=== PATIENT | female | born 1950 | race Caucasian/White ===

== ENCOUNTER 2016-11-20 09:03 | Emergency (ER) | payer OTHER, BC ==
--- NOTE | 2016-11-20 09:24 | PDOC ---
Attending Attestation - Resident Resident Name: Cruz Solomon - ED Attending Attestation I have performed the following: I have examined & evaluated the patient, The case was reviewed & discussed with the resident, I agree w/resident's findings & plan, Exceptions are as noted - HPI HPI: 11/20/16 11:00 Diarrhea, no nausea or vomiting, intermittent mild crampy abdominal pain since Tuesday when she had a zoster vaccination. No blood or mucus. Taking by mouth fluids well. No significant lightheadedness or orthostatic symptoms - Physicial Exam PE: 11/20/16 11:01 Examination is benign. No sign of significant dehydration. No abdominal tenderness, distention, and bowel sounds are normal. - Medical Decision Making 11/20/16 11:02 This is unlikely due to the vaccine. No travel, known exposure to others with GI illness, no exposure to children, and no suspicious food ingestions. However , a viral origin is most likely. Feels much better with rehydration. Continue fluids and Imodium at home. If symptoms persist, recommended stool analysis including BACK WINDER. Patient fully ambulatory, in no significant pain or other distress upon discharge, with diarrhea apparently controlled at this time.
[2016-11-20 09:26] VITALS: BP 103/65; PULSE 88; TEMP 97.8; BMI 28.1
[2016-11-20] MEDS ORDERED: SODIUM CHLORIDE 1,000 ML IV STA (09:44)
[2016-11-20] MEDS ORDERED: LOPERAMIDE HCL 2 MG CAPSULE PO ONE (09:44)
[2016-11-20] MEDS ORDERED: LOPERAMIDE HCL 2 MG CAPSULE ONE (10:13)
[2016-11-20 10:18] LABS: BASOPHIL 0.4 % (0-2.0); EOSINOPHIL 0.7 % (0-4.5); MCH 32.9 pg (25.7-33.7); MEAN CELL VOLUME 91.4 fl (80-96); MEAN PLT VOLUME 8.2 fl (7.5-11.1); NEUTROPHILS 76.2 % (42.8-82.8); PLATELET COUNT 216 K/MM3 (134-434); RDW 12.1 % (11.6-15.6); WHITE BLOOD COUNT 7.5 K/mm3 (4.0-10.8)
[2016-11-20 10:27] LABS: ALK PHOS 95 U/L (32-92); ANION GAP 11 (8-16); BILIRUBIN,TOTAL 1.3 mg/dl (0.2-1.0); CALCIUM 9.2 mg/dl (8.4-10.2); CO2 20 mmol/L (22-28); CREATININE 0.7 mg/dl (0.6-1.3); GLUCOSE,RANDOM 133 mg/dl (74-106); SGOT/AST 27 U/L (10-42); SGPT/ALT 30 U/L (10-40); TOT PROT 6.6 g/dl (6.4-8.3)
--- NOTE | 2016-11-20 11:05 | PDOC ---
History of Present Illness - General Chief Complaint: Diarrhea Stated Complaint: DIARRHEA Time Seen by Provider: 11/20/16 09:32 History Source: Patient - History of Present Illness Travel History: No Initial Comments: 11/20/16 10:58 65F with pmh of HTN and HCL on Norvasc and Crestor presents with multiple and daily episodes of water diarrhea and cramping since Tuesday night. She notes that she received a shingles shot earlier that day. She took imodium at home (2 on tuesday 1 on and 2 yesterday) which didn't seem to help. Last episode was 2 hours ago. Patient feels week and dehydrated but doesn't look ill. Pleasant interaction. Patient denies similar episodes in the past, visible rashes or feeling feverish. No visible blood or mucus in stools. No sick contacts, no ingestion of suspicious foods, no history of abdominal surgery. PCP: Dr. Hazel Campos. Past History - Past Medical History Allergies/Adverse Reactions: Allergies Allergy/AdvReac Type Severity Reaction Status Date / Time No Known Allergies Allergy Verified 08/05/15 15:06 Home Medications: Ambulatory Orders Amlodipine Besylate 5 mg PO DAILY 08/05/15 Rosuvastatin Calcium [Crestor] 5 mg PO DAILY 08/05/15 Calcium Carbonate/Vitamin D3 [Calcium 600 + Vit D 200 Tablet] 1 each PO DAILY Cholecalciferol (Vitamin D3) [Vitamin D3] 2,000 unit PO DAILY 11/20/16 Loperamide HCl [Imodium -] 2 mg PO Q8H PRN 11/20/16 Multivitamins [Tab-A-Vit -] 1 tab PO DAILY 11/20/16 Timolol 0.25% [Timoptic 0.25%] 1 drop OU BID 11/20/16 GI Disorders: Yes (DIVERTICULOSIS) HTN: Yes Hypercholesterolemia: Yes Other medical history: GLAUCOMA - Psycho/Social/Smoking Cessation Hx Anxiety: No Suicidal Ideation: No Smoking History: Never smoked Have you smoked in the past 12 months: No Hx Alcohol Use: Yes (WINE OCCASIONALLY) Drug/Substance Use Hx: No Substance Use Type: None Review of Systems - Review of Systems Constitutional: Yes: Loss of Appetite, Weakness. No: Chills, Diaphoresis, Fever , Malaise HEENTM: No: Symptoms Reported Respiratory: No: Symptoms reported Cardiac (ROS): No: Symptoms Reported ABD/GI: Yes: See HPI. No: Symptoms Reported : No: Symptoms Reported Musculoskeletal: No: Symptoms Reported Integumentary: No: Symptoms Reported Neurological: No: Symptoms reported *Physical Exam - Vital Signs Last Vital Signs Temp Pulse Resp BP Pulse Ox 97.8 F 88 15 103/65 98 11/20/16 09:04 11/20/16 09:04 11/20/16 09:04 11/20/16 09:04 11/20/16 09:04 - Physical Exam General Appearance: Yes: Nourished, Appropriately Dressed. No: Apparent Distress HEENT: positive: EOMI, [place], Normal ENT Inspection Neck: positive: Trachea midline, Normal Thyroid. negative: Tender Respiratory/Chest: positive: Lungs Clear, Normal Breath Sounds. negative: Chest Tender Cardiovascular: positive: Regular Rhythm, Regular Rate, S1, S2 Vascular Pulses: Dorsalis-Pedis (R): 2+, Doralis-Pedis (L): 2+ Gastrointestinal/Abdominal: positive: Increased Bowel Sounds ED Treatment Course - LABORATORY CBC & Chemistry Diagram: 11/20/16 10:05 11/20/16 10:05 - ADDITIONAL ORDERS Additional order review: Laboratory Results 11/20/16 10:05 Sodium 132 L Potassium 4.0 Chloride 101 Carbon Dioxide 20 L Anion Gap 11 BUN 13 Creatinine 0.7 Creat Clearance w eGFR > 60 Random Glucose 133 H Calcium 9.2 Total Bilirubin 1.3 H AST 27 ALT 30 Alkaline Phosphatase 95 H Total Protein 6.6 Albumin 4.0 11/20/16 10:05 RBC 3.88 MCV 91.4 MCHC 36.0 RDW 12.1 MPV 8.2 Neutrophils % 76.2 Lymphocytes % 12.0 Monocytes % 10.7 H Eosinophils % 0.7 Basophils % 0.4 - Medications Given in the ED: ED Medications Discontinued Medications Generic Name Dose Route Start Last Admin Trade Name Freq PRN Reason Stop Dose Admin Sodium Chloride 1,000 mls @ 1,000 mls/hr 11/20/16 09:44 11/20/16 10:12 Normal Saline - IV 11/20/16 10:43 1,000 mls/hr ASDIR STA Administration Loperamide HCl 4 mg 11/20/16 09:44 11/20/16 10:15 Imodium - PO 11/20/16 09:45 4 mg ONCE ONE Administration Medical Decision Making - Medical Decision Making 11/20/16 11:08 65F with episodes of diarrhea for 5 days. Viral illness on differential. CBC nehative CMP: HYponatremic at 132. Patient given bolus of NS, imodium. *DC/Admit/Observation/Transfer Diagnosis at time of Disposition: Viral gastroenteritis - Discharge Dispostion Disposition: HOME Condition at time of disposition: Improved Admit: No - Patient Instructions Printed Discharge Instructions: DI for Viral Gastroenteritis -- Adult Additional Instructions: Take two Imodiums at a time as needed. Hydrate with pedialyte or gatorade instead of water. Come back to the Emergency Room if any singes of fever, worsening symptoms or blood in the stools.
== END 2016-11-20 11:29 | disposition home or self-care (01) ==
LOC: FER 09:03
PROC: 3E0337Z Introduction of Electrolytic and Water Balance Substance into Peripheral Vein, Percutaneous Approach (ICD-10-PCS; principal; 2016-11-20)
DX: A08.4 Viral intestinal infection, unspecified (principal); I10 Essential (primary) hypertension; E78.00 Pure hypercholesterolemia, unspecified; H40.9 Unspecified glaucoma
CPT/HCPCS: 36415; 80053; 85025; 96360; 99283-25